=== PATIENT | male | born 1970 | race Caucasian/White ===

== ENCOUNTER 2024-11-20 16:53 | Emergency (ER) | payer OTHER, SELFPAY ==
--- NOTE | ~2024-11-20 | CT_ITS ---
EXAMINATION: CT facial & cervical spine wo DATE: 11/20/2024 17:41 INDICATION: fall TECHNIQUE: Computed tomography (CT) of the maxillofacial region and cervical spine was performed with out intravenous contrast. Automated exposure control and iterative reconstruction technique were empl oyed. The dose-length product was 642.02 mGy-cm. COMPARISON: None FINDINGS: CERVICAL: Vertebral Body Alignment: Intact. Craniocervical and atlantoaxial alignment: No significant degenerative change. Alignment intact. Osseous structures/fracture: No evidence of a lytic or blastic process in the visualized spine. No e vidence of acute fracture. Cervical soft tissues: The paraspinal soft tissues planes are maintained. Degenerative changes: No significant degenerative changes. FACE: Soft Tissues: No significant superficial soft tissue swelling. Facial bones: No acute fracture. No lytic or blastic process. Eyes: The globes are intact. The soft tissue planes of the orbits are maintained. Paranasal Sinuses: Left inferior maxillary retention cyst/polyp, the remaining aerated spaces are cl ear. Foreign Bodies: No radiopaque foreign bodies. Other Findings: Left maxillary molar periapical lucency. IMPRESSION: No acute fracture or traumatic malalignment in the cervical spine. No acute facial bone fracture. Per iodontal disease. Reviewed, dictated and finalized at location K. IMPRESSION: No acute fracture or traumatic malalignment in the cervical spine. No acute fac ial bone fracture. Periodontal disease.
--- NOTE | ~2024-11-20 | XR_ITS ---
EXAM: XR hand RT min 3V DATE: 11/20/2024 20:09 HISTORY: fall . COMPARISON: None available. FINDINGS: Normal mineralization. No fracture or dislocation. No lytic or blastic lesion. Joint space s are maintained. No erosion or periosteal change. Soft tissues within normal limits. IMPRESSION: No acute osseous finding in the right hand. Reviewed, dictated and finalized at location K.
--- NOTE | ~2024-11-20 | CT_ITS ---
EXAMINATION: CT brain wo con DATE: 11/20/2024 17:40 INDICATION: fall-etoh . TECHNIQUE: Computed tomography (CT) of the head was performed without intravenous contrast. The mA wa s adjusted according to patient size. Iterative reconstruction technique was employed. The dose-lengt h product was 681.00 mGy-cm. COMPARISON: None. FINDINGS: No acute intracranial hemorrhage or extra-axial fluid collection. No hydrocephalus, mass, or herniation. No acute ischemic infarct. Unremarkable dural venous sinus attenuation. No acute osseous abnormality. Left inferior maxillary retention cyst/polyp, the remaining aerated spaces are clear. IMPRESSION: No acute intracranial process. Reviewed, dictated and finalized at location K.
--- NOTE | ~2024-11-20 | XR_ITS ---
EXAM: XR knee RT 3V DATE: 11/20/2024 20:09 HISTORY: fall . COMPARISON: None available. FINDINGS: Normal mineralization. No fracture or dislocation. Sclerotic lesion in the proximal tibia, likely enchondroma or bone infarct. Joint spaces are mild medial joint space narrowing. No erosion o r periosteal change. Scattered vascular calcifications. IMPRESSION: No acute osseous finding in the right knee. Reviewed, dictated and finalized at location K.
--- NOTE | ~2024-11-20 | XR_ITS ---
EXAM: XR hand LT min 3V DATE: 11/20/2024 20:09 HISTORY: fall . COMPARISON: None available. FINDINGS: Normal mineralization. Transverse fracture in the proximal first metacarpal, with 40 degre es medial angulation. No lytic or blastic lesion. Joint spaces are maintained. No erosion or perioste al change. Soft tissues within normal limits. IMPRESSION: Transverse, angulated fracture of the left first proximal metacarpal. Reviewed, dictated and finalized at location K. IMPRESSION: Transverse, angulated fracture of the left first proximal metacarpa l.
--- NOTE | ~2024-11-20 | XR_ITS ---
EXAM: XR shoulder RT min 2V DATE: 11/20/2024 20:09 HISTORY: fall . COMPARISON: None available. FINDINGS: Normal mineralization. No fracture or dislocation. No lytic or blastic lesion. Mild degene rative change at the AC joint. No erosion or periosteal change. Soft tissues within normal limits. IMPRESSION: No acute osseous finding in the right shoulder. Reviewed, dictated and finalized at location K.
--- NOTE | ~2024-11-20 | XR_ITS ---
EXAMINATION: XR chest 1V Exam Date/Time: 11/20/2024 20:02 CDT HISTORY: fall Comparison: 05/30/2017. RESULT: Lines, tubes, and devices: None. Lungs and pleura: Clear. Cardiomediastinal silhouette: Stable. Other: No acute osseous or upper abdominal finding. IMPRESSION: No acute cardiopulmonary process. Reviewed, dictated and finalized at location K.
[2024-11-20 16:54] VITALS: BP 107/76; PULSE 76; RESP 18; TEMP 36.6; O2SAT 97
--- OUTSIDE RECORDS SUMMARY | 2024-11-20 16:55 | XMS_ITS ---
Author Organization [facility] Office Address [address] [place] [address] Care Team Providers Care Steam Powerplant Supervisor Name Role Phone MartinDelmiBassem Unavailable [phone] Medications Medication SIG (Take, Route, Frequency, Duration) Notes Start Date End Date Status Levothyroxine Sodium 25 MCG 1 tablet in the morning on an empty stomach Orally Once a day; Duration: 90 days 08/15/2023 Active Sodium Bicarbonate 650 MG as directed Or ally three times a day; Duration: 90 days 10/05/2021 Active Lisinopril 10 MG TAKE 1 TABLET BY KOLE DAILY; Duration: 90 Active Ergocalciferol 1.25 MG (69709 UT) 1 capsule Orally Once a week; Duration: 90 day(s) 09/10/2021 08/07/2024 Active Lisinopril 10 MG 1 tablet Orally Once a day; Duration: 90 days 12/26/2023 Active Encounters Encounter Location Date Provider Diagnosis [facility] [place] [facility] [address] [place] [address] 04/23/2024 Bassem Salazar Chronic kidney disea se, stage 2 (mild) N18.2 ; Essential (primary) hypertension I10 ; Type 2 diabetes mellitus with hyperglycemia E11.65 ; Secondary hyperparathyroidism, not elsewhere classified E21.1 ; Proteinuria, unspecified R80.9 and Renal osteodystrophy N25.0 Assessments Encounter Date Diagnosis (ICD Code) Assessment Notes Treatment Notes Treatment Clinical Notes Section Notes 04/23/2024 Chronic kidney disease, stage 2 (mild) (ICD-10 - N18.2) 04/23/2024 Essential (primary) hypertension (ICD-10 - I10) 04/23/2024 Type 2 diabetes mellitus with hyperglycemia (ICD-10 - E11.65) 04/23/2024 Secondary hyperparathyroidism , not elsewhere classified (ICD-10 - E21.1) 04/23/2024 Proteinuria, unspecified (ICD-10 - R80.9) 04/23/2024 Renal osteodystrophy (ICD-10 - N25.0) Plan Of Treatment Next Appt Details Provider Name:Bassem Salazar , 12/10/2024 02:15:00 PM, [address] [facility] [address], [address], Progress Notes * SERGIO ROSSIDOB:[birth year] (54 yo M)Acc No.[id number]:04/23/2024 Progress Notes Patient: SERGIO LUCIA Provider: Nga TRAN MD, F.A.C.P, F.A.S.N. :1970 A ge:53 Y S ex:Male Date:04/23/2024 Address:[address] [place] [address], [place] [address] Subjective: * Chief Complaints: * * Medical History: * Medications: T aking Sodium Bicarbonate 650 MG Tablet as directed Orally three times a day , Taking Levothyroxine Sodium 25 MCG Tablet 1 tablet in the morning on an empty stomach Orally Once a day , Taking Ergocalciferol 1.25 MG (29706 UT) Capsule 1 capsule Orally Once a week , stop date 08/07/2024, Taking Lisinopril 10 MG Tablet TAKE 1 TABLET BY MOUTH DAILY , Taking Lisinopril 10 MG Tablet 1 tablet Orally Once a day Objective: * Vitals: Assessment: * Assessment: 1. C hronic kidney disease, stage 2 (mild) - N18.2 2 . E ssential (primary) hypertension - I10 3 . T ype 2 diabetes mellitus with hyperglycemia - E11.65? 4. S econdary hyperparathyroidism, not elsewhere classified - E21.1 5. P roteinuria, unspecified - R80.9 6 . R enal osteodystrophy - N25.0? Plan: * Treatment: * Billing Information: * Visit Code: 66266 Office Visit, Est Pt., Level 4. * Procedure Codes: * Electronic signature of Juan Salazar MD on 11/20/2024 at 04:55 PM CDT Sign off status: Pending * Provider: Nga TRAN MD, F.A.C.P, F.A.S.N. Date: 1 06/24/2023 Generated for Printing/Faxing/eTransmitting on: 0 11/20/2024 04:55 PM CDT
--- OUTSIDE RECORDS SUMMARY | 2024-11-20 16:55 | XMS_ITS | Patient Health Record ---
Author Organization [facility] Address [address] [place] [address] Care Team Providers Care Semiconductor Bonder Name Role Phone Bassem Salazar Unavailable [phone] Reason For Referral No Information Medications Medication SIG (Take, Route, Frequency, Duration) Notes Start Date End Date Status Levothyroxine Sodium 25 MCG TAKE 1 TABLE T BY MOUTH DAILY IN THE MORNING ON AN EMPTY STOMACH; Duration: 90 Active Rosuvastatin Calcium 20 MG 1 tablet Oral ly Once a day; Duration: 90 days Active Sodium Bicarbonate 650 MG as directed Or ally three times a day; Duration: 90 days 10/05/2021 Active Lisinopril 10 MG TAKE 1 TABLET BY KOLE TH DAILY; Duration: 90 Active Lisinopril 10 MG 1 tablet Orally Once a day; Duration: 90 days 12/26/2023 Active Problems Problem Type SNOMED Code ICD Code Onset Dates Problem Status W/U Status Risk Notes Problem Hyperglycemia due to type 2 diabetes mellitus (239815672807894) Type 2 diabetes mellitus with hyperglycemia (E11.65) Active confirmed Problem Secondary hyperparathyroidism (53260024) Secondary hyperparathyroid ism, not elsewhere classified (E21.1) Active confirmed Problem Hyperlipidemia (02531585) Hyperlipidemia, unspecified (E78.5) Active confirmed Problem Essential hypertension (65692229) Essential (primary) hypertension (I10) Active confirmed Problem Chronic kidney disease stage 2 (986633226) Chronic kidney disease, stage 2 (mild) (N18.2) Active confirmed Problem Renal osteodystrophy (98522785) Renal osteodystrophy (N25.0) Active confirmed Problem Urinary tract infectious disease (disorder) (54400658) Urinary tract infection, site not specified (N39.0) Active confirmed Problem Proteinuria (59354300) Proteinuria, unspecified (R80.9) Active confirmed Encounters Encounter Location Date Provider Diagnosis [facility] [address] [address] 12/26/2023 Bassem Salazar Chronic kidney disea se, stage 2 (mild) N18.2 ; Essential (primary) hypertension I10 ; Renal osteodystrophy N25.0 ; Type 2 diabetes mellitus with hyperglycemia E11.65 ; Urinary tract infection, site not specified N39.0 ; Secondary hyperparathyroidism, not elsewhere classified E21.1 and Proteinuria, unspecified R80.9 [facility] [place] [facility] [address] [place] [address] 04/23/2024 Bassem Salazar Chronic kidney disea se, stage 2 (mild) N18.2 ; Essential (primary) hypertension I10 ; Type 2 diabetes mellitus with hyperglycemia E11.65 ; Secondary hyperparathyroidism, not elsewhere classified E21.1 ; Proteinuria, unspecified R80.9 and Renal osteodystrophy N25.0 [facility] [address] [address] 08/13/2024 Bassem Salazar Chronic kidney disea se, stage 2 (mild) N18.2 ; Essential (primary) hypertension I10 ; Type 2 diabetes mellitus with hyperglycemia E11.65 ; Urinary tract infection, site not specified N39.0 ; Secondary hyperparathyroidism, not elsewhere classified E21.1 ; Proteinuria, unspecified R80.9 ; Renal osteodystrophy N25.0 and Hyperlipidemia, unspecified E78.5 [facility] [address] [address] 12/26/2023 Bassem Salazar [facility] [place] [facility] [address] [facility] [address] [place] [address] 04/23/2024 Bassem Salazar Assessments Encounter Date Diagnosis (ICD Code) Assessment Notes Treatment Notes Treatment Clinical Notes Section Notes 12/26/2023 Chronic kidney disease, stage 2 (mild) (ICD-10 - N18.2) 04/23/2024 Chronic kidney disease, stage 2 (mild) (ICD-10 - N18.2) 08/13/2024 Chronic kidney disease, stage 2 (mild) (ICD-10 - N18.2) 08/13/2024 Essential (primary) hypertension (ICD-10 - I10) 12/26/2023 Essential (primary) hypertension (ICD-10 - I10) 04/23/2024 Essential (primary) hypertension (ICD-10 - I10) 12/26/2023 Renal osteodystrophy (ICD-10 - N25.0) 04/23/2024 Type 2 diabetes mellitus with hyperglycemia (ICD-10 - E11.65) 08/13/2024 Type 2 diabetes mellitus with hyperglycemia (ICD-10 - E11.65) 08/13/2024 Urinary tract infection, site not specified (ICD-10 - N39.0) 04/23/2024 Secondary hyperparathyroidism , not elsewhere classified (ICD-10 - E21.1) 12/26/2023 Type 2 diabetes mellitus with hyperglycemia (ICD-10 - E11.65) 12/26/2023 Urinary tract infection, site not specified (ICD-10 - N39.0) 08/13/2024 Secondary hyperparathyroidism , not elsewhere classified (ICD-10 - E21.1) 04/23/2024 Proteinuria, unspecified (ICD-10 - R80.9) 08/13/2024 Proteinuria, unspecified (ICD-10 - R80.9) 12/26/2023 Secondary hyperparathyroidism , not elsewhere classified (ICD-10 - E21.1) 04/23/2024 Renal osteodystrophy (ICD-10 - N25.0) 12/26/2023 Proteinuria, unspecified (ICD-10 - R80.9) 08/13/2024 Renal osteodystrophy (ICD-10 - N25.0) 08/13/2024 Hyperlipidemia, unspecified (ICD-10 - E78.5) Plan Of Treatment Next Appt Details Provider Name:Bassem Salazar , 12/10/2024 02:15:00 PM, [address] [facility], [facility] [address], [place], [address],
--- OUTSIDE RECORDS SUMMARY | 2024-11-20 16:55 | XMS_ITS ---
Author Organization [facility] Office Address [address] [place] [address] [place] [address] Care Team Providers Care Photographic Lithographer Name Role Phone Martin Bassem Unavailable [phone] Medications Medication SIG (Take, Route, Frequency, Duration) Notes Start Date End Date Status Ergocalciferol 1.25 MG (59210 UT) 1 capsule Orally Once a week; Duration: 90 day(s) 09/10/2021 08/07/2024 Active Lisinopril 10 MG TAKE 1 TABLET BY DAILY; Duration: 90 Active Sodium Bicarbonate 650 MG as directed Or ally three times a day; Duration: 90 days 10/05/2021 Active Levothyroxine Sodium 25 MCG 1 tablet in the morning on an empty stomach Orally Once a day; Duration: 90 days 08/15/2023 Active Problems Problem Type SNOMED Code ICD Code Onset Dates Problem Status W/U Status Risk Notes Problem Chronic kidney disease, stage 2 (mild) (N18.2) Active confirmed Encounters Encounter Location Date Provider Diagnosis [place] [facility] [address] [facility] [address] [place] [address] 12/26/2023 Bassem Salazar Chronic kidney disea se, stage 2 (mild) N18.2 ; Essential (primary) hypertension I10 ; Renal osteodystrophy N25.0 ; Type 2 diabetes mellitus with hyperglycemia E11.65 ; Urinary tract infection, site not specified N39.0 ; Secondary hyperparathyroidism, not elsewhere classified E21.1 and Proteinuria, unspecified R80.9 Assessments Encounter Date Diagnosis (ICD Code) Assessment Notes Treatment Notes Treatment Clinical Notes Section Notes 12/26/2023 Chronic kidney disease, stage 2 (mild) (ICD-10 - N18.2) 12/26/2023 Essential (primary) hypertension (ICD-10 - I10) 12/26/2023 Renal osteodystrophy (ICD-10 - N25.0) 12/26/2023 Type 2 diabetes mellitus with hyperglycemia (ICD-10 - E11.65) 12/26/2023 Urinary tract infection, site not specified (ICD-10 - N39.0) 12/26/2023 Secondary hyperparathyroidism , not elsewhere classified (ICD-10 - E21.1) 12/26/2023 Proteinuria, unspecified (ICD-10 - R80.9) Plan Of Treatment Next Appt Details Provider Name:Bassem Martin , 12/10/2024 02:15:00 PM, [address]43 [facility] [address], [address], Progress Notes * SERGIO ROSSIDOB:[birth year] (54 yo M)Acc No.[id number]:12/26/2023 Progress Notes Patient: SERGIO LUCIA Provider: Nga TRAN MD, F.A.C.P, F.A.S.N. :1970 A ge:53 Y S ex:Male Date:12/26/2023 Address:[address] [place] [address], [place] [address] Subjective: * Chief Complaints: * * Medical History: * Medications: T aking Sodium Bicarbonate 650 MG Tablet as directed Orally three times a day , Taking Levothyroxine Sodium 25 MCG Tablet 1 tablet in the morning on an empty stomach Orally Once a day , Taking Ergocalciferol 1.25 MG (04879 UT) Capsule 1 capsule Orally Once a week , stop date 08/07/2024, Taking Lisinopril 10 MG Tablet TAKE 1 TABLET BY MOUTH DAILY Objective: * Vitals: Assessment: * Assessment: 1. C hronic kidney disease, stage 2 (mild) - N18.2 2 . E ssential (primary) hypertension - I10 3 . R enal osteodystrophy - N25.0 4 . T ype 2 diabetes mellitus with hyperglycemia - E11.65 5 . U rinary tract infection, site not specified - N39.0 6 . S econdary hyperparathyroidism, not elsewhere classified - E21.1 7 . P roteinuria, unspecified - R80.9 Plan: * Treatment: * Billing Information: * Visit Code: 23655 Office Visit, Est Pt., Level 4. * Procedure Codes: * Electronic signature of Juan Salazar MD on 11/20/2024 at 04:55 PM CDT Sign off status: Pending * Provider: Nga TRAN MD, F.A.C.P, F.A.S.N. Date: 12/26/2023 Generated for Printing/Faxing/eTransmitting on: 11/20/2024 04:55 PM CDT
--- OUTSIDE RECORDS SUMMARY | 2024-11-20 16:56 | XMS_ITS ---
Author Organization [facility] Address [address] [facility] [address] [facility] [address] [place] [address] Care Team Providers Care Deli Bakery Clerk Name Role Phone MartinDelmiBassem Unavailable [phone] Problems Problem Type SNOMED Code ICD Code Onset Dates Problem Status W/U Status Risk Notes Problem Hyperlipidemia (99198902) Hyperlipidemia, unspecified (E78.5) Active confirmed Encounters Encounter Location Date Provider Diagnosis [place] [facility] [address] [facility] [address] [place] [address] 08/13/2024 Bassem Salazar Chronic kidney disea se, stage 2 (mild) N18.2 ; Essential (primary) hypertension I10 ; Type 2 diabetes mellitus with hyperglycemia E11.65 ; Urinary tract infection, site not specified N39.0 ; Secondary hyperparathyroidism, not elsewhere classified E21.1 ; Proteinuria, unspecified R80.9 ; Renal osteodystrophy N25.0 and Hyperlipidemia, unspecified E78.5 Assessments Encounter Date Diagnosis (ICD Code) Assessment Notes Treatment Notes Treatment Clinical Notes Section Notes 08/13/2024 Chronic kidney disease, stage 2 (mild) (ICD-10 - N18.2) 08/13/2024 Essential (primary) hypertension (ICD-10 - I10) 08/13/2024 Type 2 diabetes mellitus with hyperglycemia (ICD-10 - E11.65) 08/13/2024 Urinary tract infection, site not specified (ICD-10 - N39.0) 08/13/2024 Secondary hyperparathyroidism , not elsewhere classified (ICD-10 - E21.1) 08/13/2024 Proteinuria, unspecified (ICD-10 - R80.9) 08/13/2024 Renal osteodystrophy (ICD-10 - N25.0) 08/13/2024 Hyperlipidemia, unspecified (ICD-10 - E78.5) Plan Of Treatment Next Appt Details Provider Name:Bassem Salazar , 12/10/2024 02:15:00 PM, 2043 [facility], [facility] [address], [place], [address], Progress Notes * SERGIO ROSSIDOB:[birth year] (54 yo M)Acc No.[id number]:08/13/2024 Progress Notes Patient: SERGIO LUCIA Provider: Nga TRAN MD, F.Milton.C.P, F.A.S.N. :1970 A ge:54 Y S ex:Male Date:08/13/2024 Address:[address] [place] [address], [facility] Subjective: * Chief Complaints: * * Medical History: Objective: * Vitals: Assessment: * Assessment: 1. C hronic kidney disease, stage 2 (mild) - N18.2 (Primary) 2 . E ssential (primary) hypertension - I10 3 . T ype 2 diabetes mellitus with hyperglycemia - E11.65 4 . U rinary tract infection, site not specified - N39.0 5. S econdary hyperparathyroidism, not elsewhere classified - E21.1 6 . P roteinuria, unspecified - R80.9 7 . R enal osteodystrophy - N25.0 ?8. H yperlipidemia, unspecified - E78.5 Plan: * Treatment: * Billing Information: * Visit Code: 89413 Office Visit, Est Pt., Level 4. * Procedure Codes: * Electronic signature of Juan Salazar MD on 11/20/2024 at 04:55 PM CDT Sign off status: Pending * Provider: Nga TRAN MD, F.Milton.C.P, F.A.S.N. Date: 08/13/2024 Generated for Printing/Faxing/eTransmitting on: 11/20/2024 04:55 PM CDT
--- OUTSIDE RECORDS SUMMARY | 2024-11-20 16:56 | XMS_ITS | Data Portability ---
Author Organization [facility], Main Office Address [address] [place] [address] Assessment No assessment recorded. Plan of Treatment Reminders Order Date Submit Date Provider Last Modified By Organization Details Last Modified Time Details Appointments None recorded. Lab CBC w/ auto diff 2022 023 [email or web address] Not available 3 09:02:43 BMP, serum or plasma 2022 023 [email or web address] Not available 3 09:02:43 TSH, serum or plasma 2022 023 [email or web address] Not available 3 09:02:43 PSA, serum or plasma 2022 023 [email or web address] Not available 3 09:02:42 lipid panel, serum 2022 023 [email or web address] Not available 3 09:02:42 BMP, serum or plasma 2022 023 [email or web address] Not available 3 09:02:42 Referral None recorded. Procedures None recorded. Surgeries None recorded. Imaging None recorded. Medication Orders tadalafil 10 mg tablet 2022 023 [id number], [address], [place], [place], [id number], 3 16:35:21 Patient TargetsNo targets recorded. Patient InstructionsNo instructions recorded. Reason for Referral None Reported. Results Created Date Observation Date Name Description Value Unit Range Abnormal Flag Note LastModifiedBy Organization Detail LastModifiedTime 06/11/19 22 06/12/2021 LIPID PANEL comment: recruitment specialist Not Available [facility] ([facility] [place] [facility] [address] [facility], [place], [address], 06/12/2021 04:07:49 06/11/19 22 06/12/2021 LIPID PANEL cholesterol, total 211 mg/dL 100-19 9 above high normal Not Available [facility] ([facility] [place] [place] [facility] [address] [place], [address], 06/12/2021 04:07:49 06/11/19 22 06/12/2021 LIPID PANEL triglyceride s 166 mg/dL 0-149 above high normal Not Available [facility] ([facility] [place] [place] [facility] [address] [place], [address], 06/12/2021 04:07:49 06/11/19 22 06/12/2021 LIPID PANEL HDL cholesterol 44 mg/dL >39 Not Available [facility] ([facility] [place] [place] [facility] [address] [place], [address], 06/12/2021 04:07:49 06/11/19 22 06/12/2021 LIPID PANEL VLDL cholesterol ori 30 mg/dL 5-40 Not Available [facility] ([facility] [place] [place] [facility] [address] [place], [address], 06/12/2021 04:07:49 06/11/19 22 06/12/2021 LIPID PANEL LDL chol calc ([facility]) 137 mg/dL 0-99 above high normal Not Available [facility] ([facility] [place] [place] [facility] [address] [place], [address], 06/12/2021 04:07:49 03/31/20 23 03/31/2023 CBC WITH DIFFE RENTI AL/PL ATELE T WBC 8.8 x10e3 /uL 3.4-10 .8 Not Available [facility] ([facility] [place] [place] [facility] [address] [place], [address], 04/01/2023 04:08:49 03/31/20 23 03/31/2023 CBC WITH DIFFE RENTI AL/PL ATELE T RBC 4.82 x10e6 /uL 4.14-5 .80 Not Available [facility] ([facility] [place] [place] [facility] [address] [place], [address], 04/01/2023 04:08:49 03/31/2003/31/2023 CBC WITH DIFFE RENTI AL/PL ATELE T hemoglobin 15.3 g/dL 13.0-1 7.7 Not Available [facility] ([facility] [place] [place] [facility] [address] [place], [address], 04/01/2023 04:08:49 03/31/2003/31/2023 CBC WITH DIFFE RENTI AL/PL ATELE T hematocrit 45.4 % 37.5-5 1.0 Not Available [facility] ([facility] [place] [place] [facility] [address] [place], [address], 04/01/2023 04:08:49 03/31/2003/31/2023 CBC WITH DIFFE RENTI AL/PL ATELE T MCV 94 fL 79-97 Not Available [facility] ([facility] [place] [place] [facility] [address] [place], [address], 04/01/2023 04:08:49 03/31/2003/31/2023 CBC WITH DIFFE RENTI AL/PL ATELE T MCH 31.7 pg 26.6-3 3.0 Not Available [facility] ([facility] [place] [place] [facility] [address] [place], [address], 04/01/2023 04:08:49 03/31/2003/31/2023 CBC WITH DIFFE RENTI AL/PL ATELE T MCHC 33.7 g/dL 31.5-3 5.7 Not Available [facility] ([facility] [place] [place] [facility] [address] [place], [address], 04/01/2023 04:08:49 03/31/20 23 03/31/2023 CBC WITH DIFFE RENTI AL/PL ATELE T RDW 12.4 % 11.6-1 5.4 Not Available [facility] ([facility] [place] [place] [facility] [address] [facility], [place], [address], 04/01/2023 04:08:49 03/31/20 23 03/31/2023 CBC WITH DIFFE RENTI AL/PL ATELE T platelets 314 x10e3 /uL 150-45 0 Not Available [facility] ([facility] [place] [place] [facility] [address] [facility], [place], [address], 04/01/2023 04:08:49 03/31/20 23 03/31/2023 CBC WITH DIFFE RENTI AL/PL ATELE T neutrophils 59 % not estab. Not Available [facility] ([facility] [place] [place] [facility] [address] [facility], [place], [address], 04/01/2023 04:08:49 03/31/20 23 03/31/2023 CBC WITH DIFFE RENTI AL/PL ATELE T lymphs 30 % not estab. Not Available [facility] ([facility] [place] [place] [facility] [address] [facility], [place], [address], 04/01/2023 04:08:49 03/31/20 23 03/31/2023 CBC WITH DIFFE RENTI AL/PL ATELE T monocytes 8 % not estab. Not Available [facility] ([facility] [place] [place] [facility] [address] [facility], [place], [address], 04/01/2023 04:08:49 03/31/20 23 03/31/2023 CBC WITH DIFFE RENTI AL/PL ATELE T eos 1 % not estab. Not Available [facility] ([facility] [place] [place] [facility] [address] [facility], [place], [address], 04/01/2023 04:08:49 03/31/20 23 03/31/2023 CBC WITH DIFFE RENTI AL/PL ATELE T basos 1 % not estab. Not Available [facility] ([facility] [place] [place] [facility] [address] [place], [address], 04/01/2023 04:08:49 03/31/2003/31/2023 CBC WITH DIFFE RENTI AL/PL ATELE T immature cells [employer]RIBUTOR Not Available [facility] ([facility] [place] [place] [facility] [address] [facility], [place], [address], 04/01/2023 04:08:49 03/31/2003/31/2023 CBC WITH DIFFE RENTI AL/PL ATELE T neutrophils (absolute) 5.4 x10e3 /uL 1.4-7. 0 Not Available [facility] ([facility] [place] [place] [facility] [address] [place], [address], 04/01/2023 04:08:49 03/31/2003/31/2023 CBC WITH DIFFE RENTI AL/PL ATELE T lymphs (absolute) 2.6 x10e3 /uL 0.7-3. 1 Not Available [facility] ([facility] [place] [place] [facility] [address] [place], [address], 04/01/2023 04:08:49 03/31/20 23 03/31/2023 CBC WITH DIFFE RENTI AL/PL ATELE T monocytes(ab solute) 0.7 x10e3 /uL 0.1-0. 9 Not Available [facility] ([facility] [place] [place] [facility] [address] [place], [address], 04/01/2023 04:08:49 03/31/2003/31/2023 CBC WITH DIFFE RENTI AL/PL ATELE T eos (absolute) 0.1 x10e3 /uL 0.0-0. 4 Not Available [facility] ([facility] [place] [place] [facility] [address] [place], [address], 04/01/2023 04:08:49 03/31/20 23 03/31/2023 CBC WITH DIFFE RENTI AL/PL ATELE T baso (absolute) 0.0 x10e3 /uL 0.0-0. 2 Not Available [facility] ([facility] [place] [place] [facility] [address] [place], [address], 04/01/2023 04:08:49 03/31/20 23 03/31/2023 CBC WITH DIFFE RENTI AL/PL ATELE T immature granulocytes 1 % not estab. Not Available [facility] ([facility] [place] [place] [facility] [address] [facility], [place], [address], 04/01/2023 04:08:49 03/31/2003/31/2023 CBC WITH DIFFE RENTI AL/PL ATELE T immature grans (abs) 0.0 x10e3 /uL 0.0-0. 1 Not Available [facility] ([facility] [place] [place] [facility] [address] [facility], [place], [address], 04/01/2023 04:08:49 03/31/20 23 03/31/2023 CBC WITH DIFFE RENTI AL/PL ATELE T NRBC [employer]RI[employer]OR Not Available [facility] ([facility] [place] [place] [facility] [address] [place], [address], 04/01/2023 04:08:49 03/31/20 23 03/31/2023 CBC WITH DIFFE RENTI AL/PL ATELE T hematology comments: RECY[employer]RI[employer]OR Not Available [facility] ([facility] [place] [place] [facility] [address] [place], [address], 04/01/2023 04:08:49 03/31/20 23 04/01/2023 BASIC METAB OLIC PANEL (8) glucose 95 mg/dL 70-99 Not Available [facility] ([facility] [place] [place] [facility] [address] [place], [address], 04/01/2023 04:08:50 03/31/20 23 04/01/2023 BASIC METAB OLIC PANEL (8) BUN 18 mg/dL 6-24 Not Available [facility] ([facility] [place] [place] [facility] [address] [place] [place], [address], 04/01/2023 04:08:50 03/31/20 23 04/01/2023 BASIC METAB OLIC PANEL (8) creatinine 1.47 mg/dL 0.76-1 .27 above high normal Not Available [facility] ([facility] [place] [place] [facility] [address] [facility], [place], [address], 04/01/2023 04:08:50 03/31/20 23 04/01/2023 BASIC METAB OLIC PANEL (8) eGFR 56 mL/mi n/1.7 3 >59 below low normal Not Available [facility] ([facility] [place] [place] [facility] [address] [facility], [place], [address], 04/01/2023 04:08:50 03/31/20 23 04/01/2023 BASIC METAB OLIC PANEL (8) BUN/creatini ne ratio 12 9-20 Not Available [facility] ([facility] [place] [place] [facility] [address] [place] [place], [address], 04/01/2023 04:08:50 03/31/20 23 04/01/2023 BASIC METAB OLIC PANEL (8) sodium 138 mmol/ L 134-14 4 Not Available [facility] ([facility] [place] [place] [facility] [address] [place], [address], 04/01/2023 04:08:50 03/31/20 23 04/01/2023 BASIC METAB OLIC PANEL (8) potassium 4.9 mmol/ L 3.5-5. 2 Not Available [facility] ([facility] [place] [place] [facility] [address] [place], [address], 04/01/2023 04:08:50 03/31/20 23 04/01/2023 BASIC METAB OLIC PANEL (8) chloride 103 mmol/ L 96-106 Not Available [facility] ([facility] [place] [place] [facility] [address] [place], [address], 04/01/2023 04:08:50 03/31/20 23 04/01/2023 BASIC METAB OLIC PANEL (8) carbon dioxide, total 24 mmol/ L 20-29 Not Available [facility] ([facility] [place] [place] [facility] [address] [place], [address], 04/01/2023 04:08:50 03/31/20 23 04/01/2023 BASIC METAB OLIC PANEL (8) calcium 9.3 mg/dL 8.7-10 .2 Not Available [facility] ([facility] [place] [place] [facility] [address] [place], [address], 04/01/2023 04:08:50 03/31/20 23 04/01/2023 LIPID PANEL cholesterol, total 197 mg/dL 100-19 9 Not Available [facility] ([facility] [place] [place] [facility] [address] [place], [address], 04/01/2023 04:08:51 03/31/20 23 04/01/2023 LIPID PANEL triglyceride s 143 mg/dL 0-149 Not Available [facility] ([facility] [place] [place] [facility] [address] [place], [address], 04/01/2023 04:08:51 03/31/20 23 04/01/2023 LIPID PANEL HDL cholesterol 42 mg/dL >39 Not Available [facility] [place] [place] [facility] [address] [place], [address], 04/01/2023 04:08:51 03/31/20 23 04/01/2023 LIPID PANEL VLDL cholesterol ori 26 mg/dL 5-40 Not Available [facility] ([facility] [place] [place] [facility] [address] [place], [address], 04/01/2023 04:08:51 03/31/20 23 04/01/2023 LIPID PANEL LDL chol calc ([facility]) 129 mg/dL 0-99 above high normal Not Available [facility] ([facility] [place] [place] [facility] [address], [place], [address], 04/01/2023 04:08:51 03/31/2004/01/2023 LIPID PANEL comment: RECY[employer]RI[employer]OR Not Available [facility] ([facility] [place] [place] [facility] [address], [place], [address], 04/01/2023 04:08:51 03/31/20 23 04/01/2023 TSH TSH 1.750 uIU/m L 0.450- 4.500 Not Available [facility] ([facility] [place] [place] [facility] [address], [place], [address], 04/01/2023 04:08:52 03/31/2004/01/2023 PROST ATE-S PECIF IC AG prostate specific Ag 1.1 NG/mL 0.0-4. 0 [facility]aurus ECLIA metho dolog y. Accor ding to the Ameri can [employer]o g[employer] iatio n, Serum PSA shoul d decre ase and remai n at undet ectab le level s after radic al prost atect christopher. The AUA defin es bioch emica l recur rence as an initi al PSA value 0.2 ng/mL or great er follo wed by a subse quent confi rmato ry PSA value 0.2 ng/mL or great er. Value s obtai servando with diffe rent assay metho ds or kits canno t be used inter piña eably . Resul ts canno t be inter prete d as absol liza evide nce of the prese nce or absen ce of dina nicole se. Not Available [facility] ([facility] [place] [place] [facility] [address] [facility], [place], [address], 04/01/2023 04:08:52 03/26/20 22 03/26/2022 US, retro perit oneum No observ ation record ed. [id number] [facility] [address] [place], [address], 07/17/2022 06:01:52 Result Notes None recorded. Problems Name Problem SNOMED Code Status Onset Date Resolution Date Notes Provider Name and Address Organization Details Recorded Time Testosterone level below reference range 839880247 Active Not Available Replaced by [facility] 3 05:57:21 Serum creatinine above reference range 370094422 Active Not Available Replaced by [facility] 3 05:57:21 Hypothyroidis m 04285581 Active Not Available Replaced by [facility] 3 05:57:21 Essential hypertension 78757891 Active Not Available Replaced by [facility] 3 05:57:21 Chronic kidney disease 463218278 Active [address] Salazar Not Available Replaced by [facility] 3 05:57:21 Skin lesion 20649303 Active Not Available Replaced by [facility] 3 05:57:21 Erectile dysfunction 794019233 Active 2022 Patricia Perdomo MD [address], [place], [address] , [employer] 3 16:24:22 Adult health examination Active 2022 Patricia Perdomo MD [address], [place], [address] , [employer] 3 16:29:22 Problem Notes None recorded. Medical Equipment None Reported. Allergies No known drug allergies Medications Name Sig Start Date Stop Date Status Note LastModified by Organization Details LastModified Time losartan 50 mg tablet 12/14 completed Not Available Not Available Not Available lisinopril 20 mg tablet TK 1 T PO QD 03/13 completed Not Available Not Available Not Available ciprofloxac in 250 mg tablet 02/18 completed Not Available Not Available Not Available levothyroxi ne 25 mcg tablet TAKE 1 TABLET BY MOUTH EVERY DAY active Not Available Not Available No t Available sodium bicarbonate 650 mg tablet TAKE 2 TABLETS BY MOUTH TWICE DAILY active Not Available Not Available No t Available cephalexin 500 mg capsule TK 1 C PO TID FOR 10 DAYS 02/18 completed Not Available Not Available Not Available oseltamivir 75 mg capsule 02/18 completed Not Available Not Available Not Available lisinopril 10 mg tablet TAKE 1 TABLET BY MOUTH EVERY DAY active Not Available Not Available No t Available cephalexin 500 mg tablet Take 1 tablet 3 times a day by oral route for 10 days. 02/18 completed Not Available Not Available Not Available ergocalcife rol (vitamin D2) 1,250 mcg (50,000 unit) capsule TAKE 1 CAPSULE BY MOUTH 1 TIME A WEEK active Not Available Not Available No t Available Viagra 100 mg tablet 1/2 to 1 tab po x 1 30 minutes prior to intercour se 02/18 completed Not Available Not Available Not Available albuterol sulfate HFA 90 mcg/actuati on aerosol inhaler INL 2 PFS PO Q 4 H PRN 05/31 completed Not Available Not Available Not Available lisinopril 40 mg tablet TK 1 T PO QD 05/31 completed Not Available Not Available Not Available fluticasone propionate 50 mcg/actuati on nasal spray,suspe nsion 2 sprays IEN daily active Not Available Not Available No t Available tadalafil 10 mg tablet 1 po 30 minutes prior to intercour se, don't exceed 2 tabs in 24 hours active Not Available Not Available No t Available tadalafil 20 mg tablet Take 1 tablet every day by oral route. active Not Available Not Available No t Available sodium bicarbonate daily 02/18 completed Not Available Not Available Not Available Fluvirin (PF) 45 mcg (15 mcg x 3)/0.5 mL intramuscul ar syringe ADM 0.5ML IM UTD 03/13 completed Not Available Not Available Not Available Fluvirin (PF) 45 mcg(15 mcg x3)/0.5 mL intramuscul ar syringe ADM 0.5ML IM UTD active Not Available Not Available No t Available Flucelvax Quad (PF) 60 mcg (15 mcg x 4)/0.5 mL IM syringe ADM 0.5ML IM UTD active Not Available Not Available No t Available Vitals Date Recorded Body mass index (BMI) Body height Body weight Provider Name and Address Organization Details Last Updated DateTime 05/31/2021 26.2 kg/m2 182.88 cm 45224.33 g Not Available Melani ealt 07/17/2022 05:56:53 Date Recorded Body weight Body temperature Heart rate Oxygen saturation Oxygen saturation in Arterial blood by Pulse oximetry Systolic And Diastolic Provider Name and Address Organization Details Last Updated DateTime 3 87159.2 1 g 97.4 [degF] 95 /min 98 % 98 % 122/78 mm[Hg] Mariah Crump RN [facility] [employer] [facility] 3 16:19:51 Date Recorded Body mass index (BMI) Body height Oxygen saturation Oxygen saturation in Arterial blood by Pulse oximetry Heart rate Body temperature Body weight Systolic And Diastolic Provider Name and Address Organization Details Last Updated DateTime 1 26.7 kg/m2 182.88 cm 98 % 98 % 76 /min 98.1 [degF] 67984.7 g 140/80 mm[Hg] Not Available [employer] 3 05:56:51 Social History Question Answer Notes LastModified by [employer] Details LastModified Time Tobacco Smoking Status Former Smoker quit [address] [facility] 12/02/2022 16:16:37 In The 14 Days Before Symptom Onset, Have You Had Close Contact With A Laboratory-confir med COVID-19 While That Case Was Ill? No [email or web address] Information not available 12/02/2022 In The 14 Days Before Symptom Onset, Have You Had Close Contact With A Person Who Is Under Investigation For COVID-19 While That Person Was Ill? No [email or web address] Information not available 12/02/2022 What Type Of Diet Are You Following? REGULAR [id number] Information not available 07/17/2022 What Was The Date Of Your Most Recent Tobacco Screening? 12/02/2022 [email or web address] Information not available 12/02/2022 Do You Have Any Dietary Restrictions? No [email or web address] Information not available 12/02/2022 Sex: Unknown Functional Status Question Answer Note LastModified by [employer] Details LastModified Time What is your exercise level? Occasional [id number] Information not available 07/17/2022 Mental Status None recorded. Family History Relationship Description Onset Age of this Age Resolved Age Notes LastModified by Organization Details LastModified Time Mother Essential hypertension [email or web address] Not available 16:16:36 Mother Atrial fibrillation [email or web address] Not available 16:16:36 Paternal Grandfather Myocardial infarction [id number] Not available 07/17/2022 05:54:04 Father Glaucoma [email or web address] Not available 12/02/2022 16:16:36 Father Malignant neoplasm of prostate Not available 2022 16:16:36 Notes:No colon cancer Medical History No medical history recorded. Immunizations Vaccine Type Date Status Note Provider Nam e and Address Organization Details Recorded Time COVID-19, mRNA, LNP-S, bivalent, PF, 30 mcg/0.3 mL dose 3 completed Danay Umana RN null, [facility] [email or web address] [facility] 09/27/2022 08:53:27 zoster recombinant 3 completed Davina Hancock LPN null, [facility] 02/28/2023 12:58:58 zoster recombinant 4 completed Mariah Crump RN null, [facility] [email or web address] [facility] 06/17/2023 09:13:42 influenza, intradermal, quadrivalent, preservative free 8 completed Not Available Replaced by [facility] 07/17/2022 06:01:38 COVID-19, mRNA, LNP-S, PF, 30 mcg/0.3 mL dose 1 completed Not Available Replaced by [facility] 07/17/2022 06:01:38 COVID-19, mRNA, LNP-S, PF, 30 mcg/0.3 mL dose 1 completed Not Available Replaced by [facility] 07/17/2022 06:01:38 COVID-19, mRNA, LNP-S, PF, 30 mcg/0.3 mL dose 1 completed Not Available [facility] 07/17/2022 06:01:38 Influenza, split virus, quadrivalent, preservative 9 completed Not Available [facility] 07/17/2022 06:01:38 Influenza, split virus, quadrivalent, preservative 7 completed Not Available [facility] 07/17/2022 06:01:38 Past Encounters Encounter ID Performer Location Encounter Start Date Encounter Closed Date Diagnosis/Indication Diagnosis SNOMED-CT Code Diagnosis ICD10 Code Diagnosis Note [id number] Patricia Perdomo MD [facility] [place] [facility] [address] [place] [address] [address] [place] [address] 03/23/2021 00:00:00 03/23/2021 13:39:22 [id number] Patircia Perdomo MD [email or web address] [address] [place] [address] 05/31/2021 00:00:00 05/31/2021 09:30:09 [id number] Patricia Perdomo MD [facility]ise [email or web address] [address] [place] [address] 12/02/2022 16:15:43 12/02/2022 16:42:47 Erectile dysfunction 369796797 F52.21 Adult heal th examination 744763928 Z00.00 Z12.5 E78.5 Z13.1 Remain nonsmoker Recommend annual flu vaccine Recommend covid booster per cdc guidelines Recommend Shingles vaccine Will check fasting labs and PSA Cologuard normal 06/2020-2023 Continue healthy diet/exerc ise Hypothyroidism 19314432 E03.9 Essential hypertension 16844421 I10 Chronic ki dney disease 471836608 N18.9 sees nephrology regularly Health Concerns Section Related Observation LastModified by Organization Detai ls LastModified Time None Recorded Concern Status LastModified by Organization Details LastModified Time None Recorded Advance Directives Directive None Recorded Payers Insurance Date Sequence Insurance Name Policy Number Policy Marie Covered Member ID Marie Member ID Guarantor Name 12/16/2022 1 [facility] [id number] Wilbert Randolph [id number] Wilbert Randolph Notes Date Note Type Note Provider Name and Address Organization Details Recorded Time 12/02/2022 text/html Here for wellness exam Patricia Perdomo MD [address] [facility], [facility] [address], [place], [address], [facility] 12/16/2022 08:32:50
--- NOTE | 2024-11-20 17:14 | PC.NURSE ---
patient has no neuro deficits at this time. pupils equal and reactive, no drift in any extremity and good strength.
[2024-11-20 19:26] VITALS: BP 134/78; PULSE 83; RESP 17; O2SAT 99
--- NOTE | 2024-11-20 19:48 | ECG_ITS ---
Test Date: 2024-11-20 20:15:45 Measurements Intervals [place] Rate: 75 P: 64 UT: 124 QRS: 5 QRSD: 89 T: 31 QT: 365 QTc: 410 Interpretive Statements SINUS RHYTHM NONSPECIFIC T-WAVE ABNORMALITY No previous ECG available for comparison Electronically Signed On 11-21-2024 13:41:25 CDT by Prince Alvarez M.D.
--- NOTE | 2024-11-20 19:50 | ED_ITS ---
HPI - Fall General Chief Complaint: Fall Stated Complaint: fall Time Seen by Provider: 11/20/24 19:35 History of Present Illness HPI Narrative: 54-year-old male presents emergency department with and daughter at bedside for a fall that occurred prior to arrival. Patient reportedly had 3-4 glasses of whiskey today. He was at the pool when he came out of the bathroom and fell down 2 steps and fell to the ground. The patient states he does not recall the fall but at bedside states there was footage on the ring camera which showed the patient tripping on his shoe and falling. No LOC. patient is not anticoagulated. He is reporting a laceration to the lateral aspect of his right eye, abrasions to his right knee and right shoulder, abrasions to his right hand and pain to his left hand. Last Tdap is unknown. Related Data Allergies Allergy/AdvReac Type Severity Reaction Status Date / Time thimerosal Allergy Mild Unknown Verified 11/20/24 19:33 Review of Systems 2 Review of Systems: All systems reviewed & are unremarkable except as noted in HPI and below Exam 2 Narrative: GENERAL: Well-appearing, well-nourished, and in no acute distress. Clinically intoxicated, smells of ETOH HEAD: Normocephalic EYES: PERRLA and EOMI. Approximately 3 cm U shaped laceration to the lateral aspect of the right orbit, superficial and well approximated, no active bleeding, no deep structures or foreign bodies visualized. Surrounding ecchymosis. No tenderness to the orbit. No pain with EOMs. No proptosis ENT: Nares clear, no rhinorrhea or epistaxis. Mucous membranes moist. NECK: No midline cervical spinous tenderness, crepitus, step-offs or deformities BACK: No midline thoracolumbar spinous tenderness, crepitus, step-offs or deformities CHEST: Clear to auscultation. No respiratory distress. HEART: Regular rate and rhythm. No murmur heard. Normal peripheral pulses. ABDOMEN: Soft, nontender, nondistended, normal active bowel sounds. EXTREMITIES: RUE: Abrasion to the right shoulder, no deformity, pain over abrasion, full ROM. Small superficial laceration to the distal phalanx of the right 3rd finger with small abrasions throughout the right hand, full active passive range of motion of all digits, bleeding controlled throughout, radial pulse 2 +, sensation intact, radial, median and ulnar nerves are intact. LUE: Tenderness to the 1st and 2nd metacarpals without obvious deformity over the 1st metacarpal, patient unable to flex 1st digit due to pain. Range of motion remainder of digits. Radial pulse 2 +. No tenderness remainder of left upper extremity. Sensation intact throughout. RLE: Superficial abrasions over the right knee tenderness to abrasions, no bony tenderness, full range of motion of knee, no tenderness remainder of extremity. No tenderness to left lower extremity. Bilateral pedal pulses 2+. Sensation intact throughout. No tenderness to hips or pelvis. Compartments are soft throughout. SKIN: Warm, dry, no rash. NEURO: No focal deficits. Alert and oriented x3 Course Vital Signs Vital signs: Vital Signs Temperature 97.9 F 11/20/24 16:54 Pulse Rate 76 11/20/24 16:54 Respiratory Rate 18 11/20/24 16:54 Blood Pressure 107/76 11/20/24 16:54 Pulse Oximetry 97 11/20/24 16:54 Oxygen Delivery Room Air 11/20/24 16:54 Temperature 97.9 F 11/20/24 16:54 Pulse Rate 78 11/20/24 22:41 Respiratory Rate 17 11/20/24 22:41 Blood Pressure 134/78 11/20/24 19:26 Pulse Oximetry 98 11/20/24 22:41 Oxygen Delivery Room Air 11/20/24 16:54 Procedures Laceration Laceration 1: Date: 11/20/24 Time: 22:29 Site: upper extremity Side (If applicable): left Description: irregular Depth: simple, single layer Pre-repair: wound explored, irrigated and irrigated extensively ====== Skin Level ====== Skin layer closed with: dermabond ====== Subcutaneous Layer ====== ====== Muscle Layer ====== ====== Tendon Layer ====== Laceration 2: Date: 11/20/24 Time: 22:32 Site: upper extremity Side (If applicable): right Size (cm): 1 Description: irregular Depth: simple, single layer Pre-repair: wound explored, irrigated and irrigated extensively ====== Skin Level ====== Skin layer closed with: steri strips ====== Subcutaneous Layer ====== ====== Muscle Layer ====== ====== Tendon Layer ====== MDM - Fall MDM Narrative Medical decision making narrative: 54-year-old male presents emergency department after a reported mechanical fall. Patient was going down 2 steps and reportedly tripped and fell. The fall was unwitnessed, however was recorded on a ring camera and it appeared that the patient tripped. Patient does not recall the event, he is intoxicated. No LOC. he is not anticoagulated. Patient is clinically intoxicated on arrival. Vitals are stable. Exam is notable for the above. EKG shows normal sinus rhythm with rate of 75 ppm, normal NV interval, normal QRS duration, normal QTC, nonspecific T-wave abnormality, no ST elevations or depressions. Troponin is undetectable. Chest x-ray shows no acute cardiopulmonary process. Right shoulder x-ray shows no acute osseous findings. CT brain shows no acute intracranial findings. CT facial bones and cervical spine shows no acute fracture traumatic malalignment, no acute facial bone fracture. X-ray the right knee shows no acute osseous findings. X-ray of the right hand is unremarkable. X-ray of the left hand shows a transverse angulated fracture of the left 1st proximal metacarpal. CBC with leukocytosis of 16.4, no anemia. Chemistries show signs of dehydration with mild hyperkalemia 5.1, creatinine of 1.33. Fluids provided. ETOH is elevated 151. Tetanus updated in the ED. abrasions and lacerations were cleansed extensively with normal saline and tetanus updated. Patient re-evaluated and clinically sober. He is declining sutures and is requesting glue to the laceration to the right lateral orbit. I feel this is fair given it is well approximated, no active bleeding, no deep structures or foreign bodies visualized. Some very superficial laceration to the dorsum of the right 3rd digit was closed with Steri-Strips. Patient's left hand was placed in a thumb spica and he was given Orthopedic follow-up. After thumb spica placement patient remains neurovascularly intact. Patient was given care instructions and strict ED return precautions. He is agreeable with the plan verbalized understanding. Discharged in stable condition in his 's custody. Lab Data 11/20/24 20:09 11/20/24 20:09 Labs: Lab Results 11/20/24 11/20/24 Range/Units 20:09 22:07 WBC 16.4 H (4.5-10.0) K/mm3 RBC 4.89 (4.6-6.20) M/mm3 Hgb 15.4 (14.0-18.0) g/dL Hct 45.2 (42.0-52.0) % MCV 92.4 (80-100) fl MCH 31.5 (26-34) pg MCHC 34.1 (32-36) g/dl RDW 12.9 (11.5-14.5) % Plt Count 262 (150-375) k/mm3 MPV 8.9 (7.4-10.4) fl Immature Gran % (Auto) 0.6 H (0-0.5) % Neut % (Auto) 75.8 H (45.5-73.1) % Lymph % (Auto) 18.6 (18.3-44.2) % [place] % (Auto) 4.6 (2.6-8.5) % Eos % (Auto) 0.2 (0-4.4) % Baso % (Auto) 0.2 (0.2-1.2) % Lymph # (Auto) 3.05 (0.9-3.2) K/mm3 [place] # (Auto) 0.8 H (0.1-0.6) K/mm3 Eos # (Auto) 0.0 (0-0.3) K/mm3 Baso # (Auto) 0.0 (0.0-0.1) K/mm3 Abs Immat Gran (auto) 0.10 H (0.00-0.031) K/mm3 Absolute Neuts (auto) 12.4 H (1.3-6.7) K/mm3 Absolute Nucleated RBC 0.000 (0.0-0.012) K/mm3 Nucleated RBC % 0.0 (0.0-0.2) % PT 14.1 (11.1-14.7) Seconds INR 1.1 APTT 24.3 (22.3-36.8) Seconds Sodium 141 (137-145) mmol/L Potassium 5.1 H (3.4-5.0) mmol/L Chloride 104 (98-107) mmol/L Carbon Dioxide 27 (22-30) mmol/L Anion Gap 10 (4-12) mmol/L BUN 19 (9-20) mg/dL Creatinine 1.33 H (0.7-1.3) mg/dL Estim Creat Clear Calc 61 ml/min Estimated GFR 56 L (59 - ) Glucose 113 H (65-110) mg/dL Calcium 9.6 (8.4-10.2) mg/dL Total Bilirubin 0.4 (0.2-1.3) mg/dL AST 47 (17-59) U/L ALT 43 (6-50) U/L Alkaline Phosphatase 74 (38-126) U/L Troponin I < 0.012 (0.000-0.034) ng/mL Total Protein 7.2 (6.3-8.2) g/dL Albumin 4.6 (3.5-5.1) g/dL Urine Color Yellow (Yellow) Urine Appearance Clear (Clear) Urine pH 6.0 (5.0-9.0) Ur Specific [place] 1.010 (1.001-1.035) Urine Protein Negative (Negative) mg/dL Urine Glucose (UA) Negative (Negative) mg/dL Urine Ketones Negative (Negative) mg/dL Ur Blood (Man) Negative (Negative) Urine Nitrate Negative (Negative) Urine Bilirubin Negative (Negative) Urine Urobilinogen 0.2 (<2.0) mg/dL Leukocyte Esterase Rfl Negative (Negative) GONZALO/UL Urine Opiates Screen Negative (Negative) Urine Methadone Screen Negative (Negative) Ur Barbiturates Screen Negative (Negative) Ur Phencyclidine Scrn Negative (Negative) Ur Amphetamine Screen Negative (Negative) U Benzodiazepines Scrn Negative (Negative) Urine Cocaine Screen Negative (Negative) U Cannabinoids Screen Negative (Negative) Ethyl Alcohol 151 (<10) mg/dL Discharge Plan Discharge Clinical Impression: Fall, Laceration, Abrasion, Fracture, metacarpal, Dehydration, Alcohol intoxication Patient Disposition: Home Condition: Stable Instructions: Antibiotic Form, Laceration (ED), Hand Fracture (DC), Head Injury (ED), Abrasion (ED) Additional Instructions: You were evaluated in the emergency department for a fall. Her lacerations were irrigated extensively with normal saline and closed. Your tetanus was updated. Your imaging reveals a left 1st metacarpal fracture as discussed. Please follow-up with orthopedist regarding this. Take hydrocodone as needed for pain. Make sure to drink plenty fluids is your found to be dehydrated. Return to the emergency department if he develops significantly worsening pain, vision changes, focal numbness or weakness, chest pain or shortness of breath, or other concerning symptoms. Patient Language: Arabic Prescriptions: New hydrocodone-acetaminophen 5-325 mg tablet 1 tablet PO Q8H PRN (Reason: pain) Qty: 14 0RF Follow-up/Referrals: Rigo Pruett MD [Physician] - Cruzito Cage MD [Physician] - Leanne,Patricia Mejia MD [Primary Care Provider] -
--- NOTE | 2024-11-20 19:50 | PC.NURSE ---
Patient taken to xray at this time.
--- OUTSIDE RECORDS SUMMARY | 2024-11-20 19:54 | XMS_ITS | Referral Summary ---
Author Organization [facility] [place] [address] [address] Care Team Providers Care Regulatory Affairs Consultant Name Role Phone No, Physician Primary Care Provider [phone] Allergies No known active allergies Medications No known medications Active Problems No known active problems Social History Tobacco Use Types Packs/Day Years Used Date Smoking Tobacco: Never Tobacco Cessation:Counseling Given: Not Answered Personal Safety Answer Date Recorded Getting School Help Needed Not on file 07/31 Sex and Gender Information Value Date Recorded Sex Assigned at Not on file Legal Sex Male 7:12 AM CDT Gender Identity Not on file Sexual Orientation Not on file Last Filed Vital Signs Vital Sign Reading Time Taken Comments Blood Pressure 118/82 07/30/2022 3:16 PM CDT Pulse 110 07/30/2022 3:16 PM CDT Temperature 37.4 C (99.4 F) 07/30/2022 3:16 PM CDT Respiratory Rate 18 07/30/2022 3:16 PM CDT Oxygen Saturation 96% 07/30/2022 3:16 PM CDT Inhaled Oxygen Concentration - - Weight 91.6 kg (202 lb) 07/30/2022 3:16 PM CDT Height 182.9 cm (6') 07/30/2022 3:16 PM CDT Body Mass Index 27.4 07/30/2022 3:16 PM CDT Plan of Treatment Not on file Insurance [place] [address] [place] [id number] [facility] CHOICE PLUS Care Teams Regulatory Affairs Consultant Relationship Specialty Start Date End Date No, Physician PCP - General 07/30/22
--- OUTSIDE RECORDS SUMMARY | 2024-11-20 19:54 | XMS_ITS | Clinical Summary ---
Author Organization [facility] [place] [address] Address [address] [place] [id number] Care Team Providers Care Juice Scaleman Name Role Phone No, Physician Primary Care Provider [phone] Allergies No known active allergies Medications No [...] on file Sexual Orientation Not on file Obstetrics History Last Filed Vital Signs Vital Sign Reading [...] 07/30/2022 3:16 PM CDT Plan of Treatment Health Maintenance Due Date Last Done Comments Colon Cancer Screening-Colonoscopy 1968 Depression Screening 1968 Hepatitis C Screening 1968 Prostate Cancer Screening-PSA 1968 DTaP/Tdap/Td Vaccine (6 - Tdap) 03/03/1985 03/02/1985, 03/02/1975, 10/24/1970, Additional history exists Hepatitis B Screening 1986 Regular Well Visit/Exam 18-64 1986 Zoster Vaccine (1 of 2) 2018 Covid-19 Vaccine ( season) 2024 04/07/2021, 03/19/2021, 08/12/2020, Additional history exists Influenza Vaccine (Season Ended) 2025 02/17/2019, 02/17/2019, 02/19/2018, Additional history exists Pneumococcal vaccine <65 Aged Out No longer eligible based on patient's age to complete this topic Insurance [facility] CHOICE PLUS Care Teams Juice Scaleman Relationship Specialty Start Date End Date No, Physician PCP - General 07/30/22
[2024-11-20 20:18] LABS: Hematocrit 45.2 % (42.0-52.0); Hemoglobin 15.4 g/dL (14.0-18.0); Immature Granulocyte Percent A 0.6 % (0-0.5); Lymphocytes Absolute Auto 3.05 K/mm3 (0.9-3.2); Mean Corpuscular HGB Conc 34.1 g/dl (32-36); Mean Corpuscular Hemoglobin 31.5 pg (26-34); Mean Corpuscular Volume 92.4 fl (80-100); Nucleated Red Blood Cells Absolute Auto 0.000 K/mm3 (0.0-0.012); Nucleated Red Blood Cells Perc 0.0 % (0.0-0.2); Platelet Count Result 262 k/mm3 (150-375); Red Blood Count 4.89 M/mm3 (4.6-6.20); White Blood Count 16.4 K/mm3 (4.5-10.0)
[2024-11-20 20:30] LABS: INR 1.1; Prothrombin Time 14.1 Seconds (11.1-14.7)
[2024-11-20 20:31] LABS: Alanine Aminotransferase 43 U/L (6-50); Albumin Level 4.6 g/dL (3.5-5.1); Alkaline Phosphatase 74 U/L (38-126); Anion Gap 10 mmol/L (4-12); Aspartate Amino Transferase 47 U/L (17-59); Bilirubin,Total 0.4 mg/dL (0.2-1.3); Blood Urea Nitrogen 19 mg/dL (9-20); Calcium 9.6 mg/dL (8.4-10.2); Carbon Dioxide 27 mmol/L (22-30); Chloride 104 mmol/L (98-107); Estimated CRCL calculation 61 ml/min; Estimated Glomerular Filt Rate 56; Glucose 113 mg/dL (65-110); Partial Thromboplastin Time 24.3 Seconds (22.3-36.8); Potassium 5.1 mmol/L (3.4-5.0); Sodium 141 mmol/L (137-145); Total Protein 7.2 g/dL (6.3-8.2)
[2024-11-20 20:34] LABS: Cannabinoid Screen Urine Negative (Negative)
[2024-11-20] MEDS: TETANUS,DIPHTHERIA,AC PERTUSSIS ADULT (0.5 ML) BOOSTRIX IM (20:38)
[2024-11-20] MEDS: SODIUM CHLORIDE 0.9% IV 1,000 ML 999 ML IV CONT (21:27)
[2024-11-20 21:32] VITALS: PULSE 85; RESP 17; O2SAT 96
[2024-11-20 22:19] LABS: Add Urine Microscopic? NO; Appearance Urine Clear (Clear); Glucose Urine UA Negative (Negative); Leukocyte Esterase Ur Negative LEU/UL (Negative); Nitrate Urine Negative (Negative); Specific Grav Ur 1.010 (1.001-1.035)
[2024-11-20 22:41] VITALS: PULSE 78; RESP 17; O2SAT 98
[2024-11-20 22:50] LABS: Troponin I < 0.012 ng/mL (0.000-0.034)
[2024-11-20 23:50] VITALS: BP 110/76; PULSE 84; RESP 16; O2SAT 98
== END 2024-11-20 23:50 | disposition home or self-care (01) ==
PROVIDERS: Emergency Provider Physician Assistant; PCP Family Medicine
DX: S01.81XA Laceration without foreign body of other part of head, initial encounter (principal); S61.212A Laceration without foreign body of right middle finger without damage to nail, initial encounter; S62.232A Other displaced fracture of base of first metacarpal bone, left hand, initial encounter for closed fracture; S40.211A Abrasion of right shoulder, initial encounter; S60.511A Abrasion of right hand, initial encounter; S80.211A Abrasion, right knee, initial encounter; E86.0 Dehydration; F10.129 Alcohol abuse with intoxication, unspecified; Y90.6 Blood alcohol level of 120-199 mg/100 ml; Z23 Encounter for immunization; K05.6 Periodontal disease, unspecified; R94.31 Abnormal electrocardiogram [ECG] [EKG]; W10.9XXA Fall (on) (from) unspecified stairs and steps, initial encounter
CPT/HCPCS: 12001; 29125; 36415; 70450; 70486; 71045; 72125; 73030; 73130; 73562; 80053; 80307; 81003; 82077; 84484; 85025; 85610; 85730; 90471; 90715; 93005; 96360; 99284; J7030